=== PATIENT | male | born 1975 | race Caucasian/White ===

== ENCOUNTER 2017-07-16 12:50 | Emergency (ER) | payer BC ==
[~2017-07-16] VITALS: Ht 180.3 cm; Wt 90.7 kg
[~2017-07-16 12:50] MED LIST: AMOXICILLIN500 MG PO; VICODIN ES 7501 TAB PO
[2017-07-16] MEDS ORDERED: CYCLOBENZAPRINE10 MG PO (14:03)
[2017-07-16] MEDS ORDERED: NORCO 5-325 TA1 EACH PO (14:03)
[2017-07-16] MEDS ORDERED: NAPROSYN500 MG PO (14:03)
== END 2017-07-16 14:06 | disposition home or self-care (01) ==
LOC: ED 12:50
DX: J02.9 Acute pharyngitis, unspecified (principal); M54.5 Low back pain; F17.200 Nicotine dependence, unspecified, uncomplicated

== ENCOUNTER 2017-07-24 11:49 | Emergency (ER) | payer BC ==
[~2017-07-24] VITALS: Ht 180.3 cm; Wt 90.7 kg
[~2017-07-24 11:49] MED LIST changes: +CYCLOBENZAPRINE10 MG PO; +NAPROSYN500 MG PO; +NORCO 5-325 TA1 EACH PO
== END 2017-07-24 13:45 | disposition home or self-care (01) ==
LOC: ED 11:49
DX: Z00.8 Encounter for other general examination (principal); F17.200 Nicotine dependence, unspecified, uncomplicated

== ENCOUNTER 2022-01-16 13:16 | Emergency (ER) | payer MEDICAID ==
[~2022-01-16] VITALS: Ht 180.3 cm; Wt 88.5 kg
[~2022-01-16 13:16] MED LIST changes: +DELTASONE20 M1 PO; +Motrin,Rufen800 MG PO
[2022-01-16] MEDS ORDERED: PREDNISONE20 M1 PO ×2 (17:25→17:26)
[2022-01-16] MEDS ORDERED: METHOCARBAMOL500 M1 PO (17:26)
== END 2022-01-16 17:40 | disposition home or self-care (01) ==
LOC: ED 13:16
DX: M54.41 Lumbago with sciatica, right side (principal)

== ENCOUNTER 2024-07-01 07:58 | Emergency (ER) | payer SELFPAY ==
[~2024-07-01] VITALS: Ht 180.3 cm; Wt 88.5 kg
[~2024-07-01 07:58] MED LIST changes: +METHOCARBAMOL500 M1 PO; +PREDNISONE20 M1 PO
[2024-07-01] MEDS ORDERED: MORPHINE Sulfate 2 MG/ML SYR IV ONE (08:35)
[2024-07-01] MEDS ORDERED: Ketorolac Tromethamine 15 MG/ML VIAL IV ONE (08:35)
[2024-07-01] MEDS ORDERED: Ondansetron Hydrochloride 4 MG/2 ML VIAL IV ONE (08:35)
[2024-07-01 08:42] LABS: BASO % 0.7 % (0.0-1.0); EOS # 0.1 10*3/uL (0.0-0.4); EOS % 1.8 % (1.0-4.0); HEMATOCRIT 48.3 % (42.0-52.0); LYMPH # 1.4 10*3/uL (1.3-4.4); MEAN CELL VOLUME 90.6 fl (80.0-94.0); MEAN CORPUSCULAR HGB 32.1 pg (27.0-31.0); MEAN CORPUSCULAR HGB CONC 35.4 g/dl (33.0-37.0); MEAN PLATELET VOLUME 8.6 fl (9.6-12.3); MONO # 0.7 10*3/uL (0.1-1.0); MONO % 11.9 % (3.0-9.0); NEUT # 3.2 10*3/uL (2.3-7.9); NEUT % 59.2 % (47.0-73.0); PLATELET COUNT AUTOMATED 303 10*3/uL (130-400); RED BLOOD COUNT 5.33 10*6/uL (4.50-5.90); RED CELL DISTRI WIDTH 12.2 % (0-14.5); WHITE BLOOD COUNT 5.5 10*3/uL (4.8-10.8)
[2024-07-01 09:03] LABS: ALKALINE PHOSPHATASE 80 U/L (46-116); BUN 6 mg/dl (9-23); CHLORIDE 106 mmol/L (98-107); LIPASE 38 U/L (12-53); POTASSIUM 3.8 mmol/L (3.4-5.1); SGPT/ALT 26 U/L (5-49); TOTAL PROTEIN 7.9 gm/dL (6.0-8.0)
[2024-07-01] MEDS ORDERED: Lactated Ringer's Solution 1,000 ML IV ONE (09:36)
[2024-07-01] MEDS ORDERED: MORPHINE SULFAT15 MG PO (10:19)
[2024-07-01] MEDS ORDERED: IBUPROFEN400 MG PO (10:19)
[2024-07-01] MEDS ORDERED: TYLENOL EXTRA500 MG PO (10:19)
[2024-07-01] MEDS ORDERED: Ondansetron4 MG PO (10:19)
== END 2024-07-01 10:42 | disposition home or self-care (01) ==
LOC: ED 07:58
PROVIDERS: Emergency Medicine
DX: N23 Unspecified renal colic (principal); R11.2 Nausea with vomiting, unspecified; Z98.890 Other specified postprocedural states

== ENCOUNTER 2025-03-15 03:08 | Emergency (ER) | payer OTHER ==
[~2025-03-15] VITALS: Ht 180.3 cm; Wt 88.5 kg
[~2025-03-15 03:08] MED LIST changes: +IBUPROFEN400 MG PO; +MORPHINE SULFAT15 MG PO; +Ondansetron4 MG PO; +TYLENOL EXTRA500 MG PO
[2025-03-15] MEDS ORDERED: SODIUM CHLORIDE 0.9% 1,000 ML IV ONE (03:25)
[2025-03-15] MEDS ORDERED: Ketorolac Tromethamine 15 MG/ML VIAL IV ONE (03:25)
[2025-03-15] MEDS ORDERED: Ondansetron Hydrochloride 4 MG/2 ML VIAL IV ONE (03:25)
[2025-03-15 03:46] LABS: BASO % 0.4 % (0.0-1.0); EOS # 0.1 10*3/uL (0.0-0.4); EOS % 1.2 % (1.0-4.0); HEMATOCRIT 45.4 % (42.0-52.0); MEAN CELL VOLUME 88.2 fl (80.0-94.0); MEAN CORPUSCULAR HGB 31.1 pg (27.0-31.0); MEAN CORPUSCULAR HGB CONC 35.2 g/dl (33.0-37.0); MEAN PLATELET VOLUME 8.5 fl (9.6-12.3); MONO % 10.2 % (3.0-9.0); NEUT # 6.4 10*3/uL (2.3-7.9); NEUT % 68.2 % (47.0-73.0); PLATELET COUNT AUTOMATED 245 10*3/uL (130-400); RED BLOOD COUNT 5.15 10*6/uL (4.50-5.90); RED CELL DISTRI WIDTH 12.3 % (0-14.5); WHITE BLOOD COUNT 9.3 10*3/uL (4.8-10.8)
[2025-03-15 04:05] LABS: BUN 12 mg/dl (9-23); CHLORIDE 107 mmol/L (98-107); POTASSIUM 4.6 mmol/L (3.4-5.1)
[2025-03-15 05:45] LABS: BILIRUBIN Negative (Negative); BLOOD Trace-Intact (Negative); CLARITY Clear (Clear); COLOR Yellow (Yellow); GLUCOSE Negative (Negative); KETONE Negative (Negative); LEUKO ESTERASE Negative (Negative); NITRITE Negative (Negative)
[2025-03-15 05:51] LABS: BACTERIA TRACE; FINE GRANULAR CAST 0-2; MUCOUS TRACE; RBC 21-30 rbc/hpf (0-2); WBC 0-2 wbc/hpf (0-5)
[2025-03-15] MEDS ORDERED: HYDROmorphONE Hydrochloride 0.5 MG/0.5 ML SYRINGE IV ONE (07:20)
== END 2025-03-15 09:00 | disposition short-term general hospital (02) ==
LOC: ED 03:08
PROVIDERS: Emergency Medicine
DX: N13.2 Hydronephrosis with renal and ureteral calculous obstruction (principal); R11.10 Vomiting, unspecified; Z87.442 Personal history of urinary calculi; Z98.890 Other specified postprocedural states